=== PATIENT | male | born 1985 | race Caucasian/White ===

== ENCOUNTER 2020-12-22 08:53 | Emergency (ER) | payer BC ==
--- NOTE | 2020-12-22 09:22 | EDM.PDOC ---
ED HPI GENERAL MEDICAL PROBLEM - General Chief Complaint: Chest Pain Stated Complaint: SORNESS IN LEFT ARM AND CHEST Time Seen by Provider: 12/22/20 08:59 Source of Information: Reports: Patient History Limitations: Reports: No Limitations - History of Present Illness INITIAL COMMENTS - FREE TEXT/NARRATIVE: The patient presents for chest pain. The patient has pain to the left upper chest. He has no fever, chills, cough, or shortness of breath. The pain is there all the time and it is mild. Nothing makes it worse and nothing makes it better. He has no abdominal pain, nausea or vomiting. He has no medical problems. He does not smoke. 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 [No Known Home Meds] 12/22/20 [History] ED ROS GENERAL - Review of Systems Review Of Systems: See Below Constitutional: Reports: No Symptoms HEENT: Reports: No Symptoms Respiratory: Reports: No Symptoms Cardiovascular: Reports: Chest Pain Endocrine: Reports: No Symptoms GI/Abdominal: Reports: No Symptoms : Reports: No Symptoms Musculoskeletal: Reports: No Symptoms Skin: Reports: No Symptoms Neurological: Reports: No Symptoms ED EXAM, GENERAL - Physical Exam Exam: See Below Exam Limited By: No Limitations General Appearance: Alert, No Apparent Distress Ears: Normal External Exam Nose: Normal Inspection Head: Atraumatic, Normocephalic Neck: Normal Inspection Respiratory/Chest: No Respiratory Distress, Lungs Clear, Normal Breath Sounds Cardiovascular: Regular Rate, Rhythm, No Edema, No Murmur GI/Abdominal: Soft, Non-Tender, No Organomegaly, No Mass Back Exam: Normal Inspection Extremities: Normal Inspection #1 Interpretation EKG Date: 12/22/20 Time: 09:14 Rhythm: NSR Rate (Beats/Min): 84 Ramsey: Normal P-Wave: Present QRS: Normal ST-T: Normal QT: Normal Course - Vital Signs Last Recorded V/S: Last Vital Signs Temp 97.7 F 12/22/20 08:59 Pulse 94 12/22/20 08:59 Resp 15 12/22/20 08:59 BP 153/98 H 12/22/20 08:59 Pulse Ox 100 12/22/20 08:59 - Orders/Labs/Meds Orders: Active Orders 24 hr Category Date Time Status Cardiac Monitoring [RC] . DIRECTED Care 12/22/20 09:18 Active Labs: Laboratory Tests 12/22/20 12/22/20 12/22/20 Range/Units 09:03 09:03 09:03 WBC 5.22 (4.23-9.07) K/mm3 RBC 5.25 (4.63-6.08) M/mm3 Hgb 16.1 (13.7-17.5) gm/dl Hct 47.3 (40.1-51.0) % MCV 90.1 (79.0-92.2) fl MCH 30.7 (25.7-32.2) pg MCHC 34.0 (32.2-35.5) g/dl RDW Std Deviation 39.4 (35.1-43.9) fL Plt Count 237 (163-337) K/mm3 MPV 9.2 L (9.4-12.3) fl Neut % (Auto) 58.5 (34.0-67.9) % Lymph % (Auto) 27.6 (21.8-53.1) % Rich % (Auto) 9.8 (5.3-12.2) % Eos % (Auto) 3.1 (0.8-7.0) Baso % (Auto) 0.8 (0.1-1.2) % Neut # (Auto) 3.06 (1.78-5.38) K/mm3 Lymph # (Auto) 1.44 (1.32-3.57) K/mm3 Rich # (Auto) 0.51 (0.30-0.82) K/mm3 Eos # (Auto) 0.16 (0.04-0.54) K/mm3 Baso # (Auto) 0.04 (0.01-0.08) K/mm3 D-Dimer, Quantitative < 0.19 L (0.19-0.50) mg/L Sodium 141 (136-145) mEq/L Potassium 3.4 L (3.5-5.1) mEq/L Chloride 102 (98-107) mEq/L Carbon Dioxide 30 (21-32) mEq/L Anion Gap 12.4 (5-15) BUN 13 (7-18) mg/dL Creatinine 1.1 (0.7-1.3) mg/dL Est Cr Clr Drug Dosing 117.27 mL/min Estimated GFR (MDRD) > 60 (>60) mL/min BUN/Creatinine Ratio 11.8 L (14-18) Glucose 98 (70-99) mg/dL Calcium 9.2 (8.5-10.1) mg/dL Total Bilirubin 0.4 (0.2-1.0) mg/dL AST 21 (15-37) U/L ALT 69 H (16-63) U/L Alkaline Phosphatase 31 L (46-116) U/L Troponin I < 0.017 (0.00-0.056) ng/mL Total Protein 8.3 H (6.4-8.2) g/dl Albumin 4.2 (3.4-5.0) g/dl Globulin 4.1 gm/dL Albumin/Globulin Ratio 1.0 (1-2) - Re-Assessments/Exams Free Text/Narrative Re-Assessment/Exam: 12/22/20 09:21 I ordered an EKG, CXR and labs. 12/22/20 10:42 His EKG shows a NSR with no acute changes. His CBC looks good. His D-dimer was negative. His K was low at 3.4. His ALT was elevated at 69. His troponin is negative. His CXR as read by Dr Carpio shows lung markings are slightly increased. Uncertain if these are chronic or represent mild bronchitis. Please correlate with the patient's symptoms. Two view chest x-ray is otherwise unremarkable. He does admit now that he has a slight cough. He has atypical chest pain and bronchitis. I will discharge him home. Departure - Departure Time of Disposition: 10:45 Disposition: Home, Self-Care 01 Condition: Good Clinical Impression: Atypical chest pain, Viral bronchitis Referrals: PCP,None [Primary Care Provider] - Gregory Novak MD [Physician] - 1 Week Forms: ED Department Discharge Additional Instructions: Drink plenty of fluids. Take tylenol or motrin for any pain or fever. You can try any over the counter cough medicine if the coughing gets worse. Please return if you are worse. Sepsis Event Note (ED) - Evaluation Sepsis Screening Result: No Definite Risk - Focused Exam Vital Signs: Vital Signs Temp Pulse Resp BP Pulse Ox 11/12/21 08:59 97.7 F 94 15 153/98 H 100 - My Orders Last 24 Hours: My Active Orders 12/22/20 09:18 Cardiac Monitoring [RC] . DIRECTED - Assessment/Plan Last 24 Hours: My Active Orders 12/22/20 09:18 Cardiac Monitoring [RC] . DIRECTED
--- NOTE | 2020-12-22 10:11 | CR ---
Chest: PA and lateral views of the chest were obtained. Comparison: No prior chest imaging is available. Heart size and mediastinum are within normal limits. Lung markings are slightly increased on both sides. Lungs otherwise are clear. Bony structures show nothing acute. Impression: 1. Lung markings are slightly increased. Uncertain if these are chronic or represent mild bronchitis. Please correlate with the patient's symptoms. 2. Two-view chest x-ray is otherwise unremarkable. Diagnostic code #3
== END 2020-12-22 10:52 | disposition home or self-care (01) ==
LOC: JD.ED 08:53
DX: J20.8 Acute bronchitis due to other specified organisms (principal); R74.01 Elevation of levels of liver transaminase levels
CPT/HCPCS: 36415; 71046; 71046-26; 80053; 84484; 85025; 85379; 93005; 93010; 99283; 99285-25

== ENCOUNTER 2024-05-02 19:48 | Emergency (ER) | payer BC ==
[2024-05-02] MEDS: Ketorolac 30 MG/ML SDV IM ONE (21:01)
== END 2024-05-02 22:56 | disposition home or self-care (01) ==
LOC: JD.ED 19:48
DX: S42.032A Displaced fracture of lateral end of left clavicle, initial encounter for closed fracture (principal); V86.06XA Driver of dirt bike or motor/cross bike injured in traffic accident, initial encounter; Y93.55 Activity, bike riding
CPT/HCPCS: 73000; 73030; 96372; 99283; J1885